=== PATIENT | female | born 1955 | race Caucasian/White ===

== ENCOUNTER 2018-06-09 13:57 | Observation (INO) | payer OTHER ==
[2018-06-09] MEDS ORDERED: MORPHINE SULFATE 4 MG/ML SYRINGE IV STA (15:59)
[2018-06-09] MEDS ORDERED: ONDANSETRON 4 MG/2 ML VIAL IVP STA (15:59)
[2018-06-09] MEDS ORDERED: SODIUM CHLORIDE 0.9% 1,000 ML IV STA (15:59)
[2018-06-09 16:36] LABS: Basophils % (A) 0 %; Eosinophils # (A) 0.2 k/uL (0-0.7); Eosinophils % (A) 2 %; HCT 41.4 % (34.0-46.0); HGB 13.9 gm/dL (11.4-16.0); Lymphocytes # (A) 2.2 k/uL (1.0-4.8); Lymphocytes % (A) 22 %; MCH 30.3 pg (25.0-35.0); MCHC 33.6 g/dL (31.0-37.0); MCV 90.2 fL (80.0-100.0); Mean Platelet Volume 6.8; Monocytes # (A) 0.4 k/uL (0-1.0); Monocytes % (A) 4 %; Neutrophils # (A) 6.9 k/uL (1.3-7.7); Neutrophils % (A) 71 %; Platelet Count 262 k/uL (150-450); RBC 4.59 m/uL (3.80-5.40); RDW 13.8 % (11.5-15.5); WBC 9.7 k/uL (3.8-10.6)
[2018-06-09 16:44] LABS: Albumin 4.4 g/dL (3.5-5.0); Calcium 9.8 mg/dL (8.4-10.2); Potassium 4.6 mmol/L (3.5-5.1); Total Bilirubin 0.4 mg/dL (0.2-1.3); Total Protein 7.8 g/dL (6.3-8.2)
--- NOTE | 2018-06-09 16:44 | XR ---
EXAMINATION TYPE: XR abdomen 2V DATE OF EXAM: 06/09/2018 COMPARISON: NONE HISTORY: Left side pain TECHNIQUE: 3 views FINDINGS: There is no sign of intestinal obstruction or pneumoperitoneum. Fecal pattern is normal. Th ere are no pathologic calcifications over the kidneys. There is 5 mm calcification in the right cira stacy region at the L1-2 level that could be urinary tract calculus. There is mild lumbar dextroscoli osis. There is no evidence of a mass. IMPRESSION: Nonacute abdomen. Possible urinary tract calculus o n the right side.
[2018-06-09 16:46] LABS: INR 0.9 (<1.2); Prothrombin Time 9.6 sec (9.0-12.0)
[2018-06-09 16:59] LABS: Creatine Kinase 80 U/L (30-135)
[2018-06-09 17:11] LABS: Creatine Kinase MB 0.9 ng/mL (0.0-2.4); Troponin I <0.012 ng/mL (0.000-0.034)
[2018-06-09 17:35] LABS: Appearance,Urine Clear (Clear); Bilirubin,Urine Negative (Negative); Blood,Urine Negative (Negative); Color,Urine Yellow; Glucose,Urine (UA) Negative (Negative); Ketones,Urine Negative (Negative); Leukocyte Esterase,Urine Negative (Negative); Nitrite,Urine Negative (Negative); Protein,Urine Negative (Negative); Specific Gravity,Urine 1.011 (1.001-1.035); Urobilinogen,Urine <2.0 mg/dL (<2.0)
--- NOTE | 2018-06-09 17:54 | XR ---
EXAMINATION TYPE: XR chest 2V DATE OF EXAM: 06/09/2018 COMPARISON: NONE HISTORY: Left-sided chest pain TECHNIQUE: Frontal and lateral views of the chest are obtained. FINDINGS: There is no heart failure. There is minimal linear density at the right lung base. There i s suboptimal inspiration. There are no hilar masses. There is no evidence of pleural effusion. Bony t horax appears intact. IMPRESSION: Subsegmental atelectasis at the right lung base. Otherwise negative exam. Normal heart. No rib fracture seen.
[2018-06-09] MEDS ORDERED: HYDROmorphone 1 MG/ML 1 ML SYRINGE IVP STA (18:06)
[2018-06-09] MEDS ORDERED: FAMOTIDINE 20 MG/2 ML VIAL IV ONE (18:28)
[2018-06-09] MEDS ORDERED: methylPREDNISolone SOD SUCCI 125 MG/2 ML VIAL IV ONE (18:28)
[2018-06-09] MEDS ORDERED: diphenhydrAMINE 50 MG/ML 1 ML VIAL IVP ONE (18:28)
--- NOTE | 2018-06-09 18:50 | ED ---
Abdominal Pain HPI - General Chief Complaint: Abdominal Pain Stated Complaint: Left side pain, rib pain Time Seen by Provider: 06/09/18 15:11 Source: patient Mode of arrival: ambulatory Limitations: no limitations - History of Present Illness Initial Comments: 62-year-old female patient presents to emergency department today for evaluation of left upper quadrant and left side pain. Patient states symptoms started a couple days ago and had been progressively worsening. Patient states that she did have a similar episode of pain approximately a month ago but it resolved on its own. Patient states she is nauseated with this but has not vomited. She describes the pain as a sharp stabbing pain. States it worsens whenever states deep breath or moves in a certain way. Patient states she is very tender over the left upper back and left side. She denies any fevers or chills. Denies any shortness of breath. Patient does report a history of blood disorder which causes blood clots, she does take Eliquis. Patient denies any recent rash, chest pain, diarrhea, constipation, back pain, numbness, tingling, dizziness, weakness, hematuria, dysuria, urinary urgency, urinary frequency, headache, visual changes, or any other complaints. - Related Data Home Medications Medication Instructions Recorded Confirmed Albuterol Inhaler [Ventolin Hfa 1 - 2 puff INHALATION RT-Q6H PRN 06/09/18 Inhaler] Enoxaparin [Lovenox] 150 mg SQ HS 06/09/18 06/09/18 Furosemide [Lasix] 20 mg PO DAILY 06/09/18 06/09/18 Mirtazapine [Remeron] 30 mg PO HS 06/09/18 06/09/18 Pantoprazole Sodium [Protonix] 40 mg PO DAILY 06/09/18 06/09/18 Sertraline [Zoloft] 100 mg PO DAILY 06/09/18 06/09/18 tiZANidine [Zanaflex] 2 mg PO Q8H PRN 06/09/18 06/09/18 Allergies Allergy/AdvReac Type Severity Reaction Status Date / Time Iodinated Contrast- Oral and AdvReac Vomiting/PASSES Verified 06/09/18 15:44 IV Dye OUT [Iodinated Contrast Media - IV Dye] Review of Systems ROS Statement: Those systems with pertinent positive or pertinent negative responses have been documented in the HPI. ROS Other: All systems not noted in ROS Statement are negative. Past Medical History Past Medical History: Deep Vein Thrombosis (DVT) Additional Past Medical History / Comment(s): protein deficiency, headache History of Any Multi-Drug Resistant Organisms: None Reported Past Surgical History: Section, Hysterectomy Additional Past Surgical History / Comment(s): neck c4 fusion Past Psychological History: Anxiety Smoking Status: Never smoker Past Alcohol Use History: None Reported Past Drug Use History: None Reported General Exam Limitations: no limitations General appearance: alert, in no apparent distress, other (Physical well- developed, well-nourished adult female patient in no acute distress. Vital signs upon presentation are temperature 98.0F, pulse 75, respirations 18, blood pressure 136/82, pulse ox 96% on room air.) Eye exam: Present: normal appearance, PERRL, EOMI. Absent: scleral icterus, conjunctival injection, periorbital swelling ENT exam: Present: normal exam, normal oropharynx, mucous membranes moist Respiratory exam: Present: normal lung sounds bilaterally, chest wall tenderness (Left rib and left upper back tenderness). Absent: respiratory distress, wheezes, rales, rhonchi, stridor Cardiovascular Exam: Present: regular rate, normal rhythm, normal heart sounds. Absent: systolic murmur, diastolic murmur, rubs, gallop, clicks GI/Abdominal exam: Present: soft, tenderness (Mild left upper quadrant tenderness), normal bowel sounds. Absent: distended, guarding, rebound, rigid Neurological exam: Present: alert, oriented X3, CN II-XII intact Psychiatric exam: Present: normal affect, normal mood Skin exam: Present: warm, dry, intact, normal color. Absent: rash Course Vital Signs 06/09/18 06/09/18 06/09/18 14:05 14:59 18:15 Temperature 98 F 98.0 F Pulse Rate 75 70 78 Respiratory 18 18 18 Rate Blood Pressure 136/82 138/80 151/98 O2 Sat by Pulse 96 95 94 L Oximetry 06/09/18 19:50 Temperature Pulse Rate 90 Respiratory 16 Rate Blood Pressure 158/95 O2 Sat by Pulse 94 L Oximetry Medical Decision Making - Medical Decision Making 62-year-old female patient presents to the emergency department today for evaluation of left-sided chest pain that radiates and through to the back. Patient states that this started 2 days ago and has been worsening. Reports it as a pressure type pain is expanding her chest. Physical examination did reveal some very mild left upper quadrant tenderness. Left-sided rib tenderness. Patient's oxygen saturation has been between 9495% while here in the department. Chest CTA and abdominal CAT scan were performed and showed no acute abnormalities however there is a very small left pleural effusion. Labs reviewed and are unremarkable. Patient was given multiple doses of pain medication here in the department. Upon reevaluation states her pain is so an 8 out of 10 on the pain scale. Given location of patient's pain and age and risk factors she'll admit to the hospital for serial troponins and cardiology consultation. Patient is agreeable with the plan. - Lab Data Result diagrams: 06/09/18 16:14 06/09/18 16:14 Lab Results 06/09/18 06/09/18 06/09/18 Range/Units 16:14 16:14 16:14 WBC 9.7 (3.8-10.6) k/uL RBC 4.59 (3.80-5.40) m/uL Hgb 13.9 (11.4-16.0) gm/dL Hct 41.4 (34.0-46.0) % MCV 90.2 (80.0-100.0) fL MCH 30.3 (25.0-35.0) pg MCHC 33.6 (31.0-37.0) g/dL RDW 13.8 (11.5-15.5) % Plt Count 262 (150-450) k/uL Neutrophils % 71 % Lymphocytes % 22 % Monocytes % 4 % Eosinophils % 2 % Basophils % 0 % Neutrophils # 6.9 (1.3-7.7) k/uL Lymphocytes # 2.2 (1.0-4.8) k/uL Monocytes # 0.4 (0-1.0) k/uL Eosinophils # 0.2 (0-0.7) k/uL Basophils # 0.0 (0-0.2) k/uL PT (9.0-12.0) sec INR (<1.2) APTT (22.0-30.0) sec Sodium 142 (137-145) mmol/L Potassium 4.6 (3.5-5.1) mmol/L Chloride 110 H (98-107) mmol/L Carbon Dioxide 23 (22-30) mmol/L Anion Gap 9 mmol/L BUN 14 (7-17) mg/dL Creatinine 0.87 (0.52-1.04) mg/dL Est GFR (CKD-EPI)AfAm 83 (>60 ml/min/1.73 sqM) Est GFR (CKD-EPI)NonAf 72 (>60 ml/min/1.73 sqM) Glucose 92 (74-99) mg/dL Plasma Lactic Acid Derick (0.7-2.0) mmol/L Calcium 9.8 (8.4-10.2) mg/dL Total Bilirubin 0.4 (0.2-1.3) mg/dL AST 35 (14-36) U/L ALT 60 H (9-52) U/L Alkaline Phosphatase 117 (38-126) U/L Total Creatine Kinase 80 (30-135) U/L CK-MB (CK-2) 0.9 (0.0-2.4) ng/mL CK-MB (CK-2) Rel Index 1.1 Troponin I <0.012 (0.000-0.034) ng/mL Total Protein 7.8 (6.3-8.2) g/dL Albumin 4.4 (3.5-5.0) g/dL Amylase 52 (30-110) U/L Lipase 144 (23-300) U/L Urine Color Urine Appearance (Clear) Urine pH (5.0-8.0) Ur Specific Skillman (1.001-1.035) Urine Protein (Negative) Urine Glucose (UA) (Negative) Urine Ketones (Negative) Urine Blood (Negative) Urine Nitrite (Negative) Urine Bilirubin (Negative) Urine Urobilinogen (<2.0) mg/dL Ur Leukocyte Esterase (Negative) 06/09/18 06/09/18 06/09/18 Range/Units 16:14 16:14 16:57 WBC (3.8-10.6) k/uL RBC (3.80-5.40) m/uL Hgb (11.4-16.0) gm/dL Hct (34.0-46.0) % MCV (80.0-100.0) fL MCH (25.0-35.0) pg MCHC (31.0-37.0) g/dL RDW (11.5-15.5) % Plt Count (150-450) k/uL Neutrophils % % Lymphocytes % % Monocytes % % Eosinophils % % Basophils % % Neutrophils # (1.3-7.7) k/uL Lymphocytes # (1.0-4.8) k/uL Monocytes # (0-1.0) k/uL Eosinophils # (0-0.7) k/uL Basophils # (0-0.2) k/uL PT 9.6 (9.0-12.0) sec INR 0.9 (<1.2) APTT 23.0 (22.0-30.0) sec Sodium (137-145) mmol/L Potassium (3.5-5.1) mmol/L Chloride (98-107) mmol/L Carbon Dioxide (22-30) mmol/L Anion Gap mmol/L BUN (7-17) mg/dL Creatinine (0.52-1.04) mg/dL Est GFR (CKD-EPI)AfAm (>60 ml/min/1.73 sqM) Est GFR (CKD-EPI)NonAf (>60 ml/min/1.73 sqM) Glucose (74-99) mg/dL Plasma Lactic Acid Derick 0.8 (0.7-2.0) mmol/L Calcium (8.4-10.2) mg/dL Total Bilirubin (0.2-1.3) mg/dL AST (14-36) U/L ALT (9-52) U/L Alkaline Phosphatase (38-126) U/L Total Creatine Kinase (30-135) U/L CK-MB (CK-2) (0.0-2.4) ng/mL CK-MB (CK-2) Rel Index Troponin I (0.000-0.034) ng/mL Total Protein (6.3-8.2) g/dL Albumin (3.5-5.0) g/dL Amylase (30-110) U/L Lipase (23-300) U/L Urine Color Yellow Urine Appearance Clear (Clear) Urine pH 6.0 (5.0-8.0) Ur Specific Sk[place]man 1.011 (1.001-1.035) Urine Protein Negative (Negative) Urine Glucose (UA) Negative (Negative) Urine Ketones Negative (Negative) Urine Blood Negative (Negative) Urine Nitrite Negative (Negative) Urine Bilirubin Negative (Negative) Urine Urobilinogen <2.0 (<2.0) mg/dL Ur Leukocyte Esterase Negative (Negative) - EKG Data -: EKG Interpreted by Me EKG Comments: EKG obtained at 2119 shows normal sinus rhythm with a ventricular rate of 87, MS interval 150, QRS duration 70, QT 362, QTc 435. No evidence of ST elevation or depression. - Radiology Data Radiology results: report reviewed, image reviewed CT abdomen and pelvis with contrast was obtained. Report was reviewed in its entirety. Impression by Dr. Yi shows fatty infiltration of the liver. Small left pleural effusion. Normal appendix. No acute abdomen mildly seen within the abdomen and pelvis. CT chest for pulmonary embolus was performed with IV contrast. Report was reviewed in its entirety. Impression by Dr. Yi shows interstitial pulmonary infiltrates could relate to pulmonary fibrosis. Mild cardiomegaly. Small left pleural effusion. Fatty infiltration of the liver. No evidence of pulmonary embolus. Two-view x-ray of the abdomen is obtained. Report was reviewed in its entirety. Impression by Dr. Yi shows nonacute abdomen. Possible urinary tract calculus on the right side Two-view x-ray of the chest is obtained. Report was reviewed in its entirety. Impression by Dr. Yi shows subsegmental atelectasis at the right lung base. Otherwise negative exam. Normal heart. No rib fracture seen. Disposition Clinical Impression: Chest pain, Pleural effusion, left Disposition: ADMITTED IP TO THIS [facility] Condition: Serious Referrals: Nonstaff,Physician [Primary Care Provider] - 1-2 days Decision to Admit Reason: Admit from EC Decision Date: 06/09/18 Decision Time: 21:00
--- NOTE | 2018-06-09 19:40 | CT ---
EXAMINATION TYPE: CT chest angio for PE DATE OF EXAM: 06/09/2018 COMPARISON: None HISTORY: Left upper quadrant and flank pain on and off x [address] DLP: 457.4 mGycm Automated exposure control for dose reduction was used. CONTRAST: CT Chest for pulmonary embolism performed with with IV Contrast, patient injected with 100 mL of Isov ue 370. FINDINGS: There is coarse groundglass interstitial infiltrate in the lungs. There is no evidence of a pulmonary mass. There is small left pleural effusion. There is fatty infiltration of the liver. Thoracic aorta is intact without evidence of aneurysm or dissection. There is no mediastinal adenopathy. There are no hilar masses. I see no filling defects in the pulmon sharron arteries. The bony thorax is intact. There is no compression fracture. IMPRESSION: Interstitial pulmonary infiltrates could relate to pulmonary fibrosis. Mild cardiomegaly. Small left pleural effusion. Fatty infiltration of the liver. no evidence of pulmonary embolism.
--- NOTE | 2018-06-09 19:49 | CT ---
EXAMINATION TYPE: CT abdomen pelvis w con DATE OF EXAM: 06/09/2018 COMPARISON: 07/25/2010 HISTORY: Left upper quadrant and flank pain on and off x [address] DLP: 1339.2 mGycm Automated exposure control for dose reduction was used. TECHNIQUE: Helical acquisition of images was performed from the lung bases through the pelvis. CONTRAST: Performed without Oral Contrast and with IV Contrast, patient injected with mL of Isovue 370. FINDINGS: There is some fatty infiltration of the liver. There is small left pleural effusion. There is some in terstitial infiltrate at the lung bases. Spleen appears normal. There is no pancreatic mass. Gallblad tom has normal size. There is no adrenal mass. Kidneys show satisfactory contrast opacification. There is no hydronephrosi s. There is 2 cm cyst posterior right kidney. There is no retroperitoneal adenopathy. Ureters are not dilated. Bladder distends smoothly. There is no free fluid in the pelvis. The appendix appears normal. There i s no mesenteric edema or adenopathy. There is no inguinal hernia. There is no free fluid in the pelvis. I see no evidence of a bowel obstr uction. There is no evidence of free air. The lumbar spine is intact. There is narrowing at L5-S1 dis c space with vacuum disc and spur formation. IMPRESSION: FATTY INFILTRATION OF THE LIVER. SMALL LEFT PLEURAL EFFUSION. NORMAL APPENDIX. NO ACUTE ABNORMALITY SEEN WITHIN THE ABDOMEN AND PELVIS.
[2018-06-09] MEDS ORDERED: NALOXONE 0.4 MG/ML 1 ML VIAL IV PRN (20:50)
[2018-06-09] MEDS ORDERED: ONDANSETRON 4 MG/2 ML VIAL IVP PRN (20:50)
[2018-06-09] MEDS ORDERED: ALBUTEROL NEBULIZED 2.5 MG/3 ML INHALATION PRN (20:52)
[2018-06-09] MEDS ORDERED: MIRTAZAPINE 15 MG TAB PO SCH (21:00)
[2018-06-09] MEDS ORDERED: ENOXAPARIN 150 MG/ML SYRINGE SQ SCH (22:00)
[2018-06-09 22:24] LABS: Creatine Kinase 74 U/L (30-135)
[2018-06-09 22:36] VITALS: BMI 36.4
[2018-06-09 22:37] LABS: Creatine Kinase MB 0.6 ng/mL (0.0-2.4); Troponin I <0.012 ng/mL (0.000-0.034)
[2018-06-09] MEDS: MORPHINE SULFATE 4 MG/ML SYRINGE IV PRN (22:42)
[2018-06-10] MEDS: MORPHINE SULFATE 4 MG/ML SYRINGE IV PRN ×3 (03:34→15:55)
[2018-06-10 04:34] LABS: Creatine Kinase 74 U/L (30-135)
[2018-06-10 04:46] LABS: Creatine Kinase MB 0.7 ng/mL (0.0-2.4); Troponin I <0.012 ng/mL (0.000-0.034)
[2018-06-10 05:54] LABS: Basophils % (A) 0 %; Eosinophils % (A) 0 %; HCT 41.7 % (34.0-46.0); HGB 13.5 gm/dL (11.4-16.0); Lymphocytes % (A) 11 %; MCH 30.3 pg (25.0-35.0); MCHC 32.3 g/dL (31.0-37.0); MCV 93.6 fL (80.0-100.0); Mean Platelet Volume 7.3; Monocytes # (A) 0.1 k/uL (0-1.0); Monocytes % (A) 1 %; Neutrophils # (A) 8.3 k/uL (1.3-7.7); Neutrophils % (A) 88 %; Platelet Count 278 k/uL (150-450); RBC 4.45 m/uL (3.80-5.40); WBC 9.4 k/uL (3.8-10.6)
[2018-06-10 06:02] LABS: Albumin 4.2 g/dL (3.5-5.0); Calcium 9.5 mg/dL (8.4-10.2); Total Bilirubin 0.3 mg/dL (0.2-1.3); Total Protein 7.5 g/dL (6.3-8.2)
[2018-06-10 08:17] VITALS: RESP 16
[2018-06-10] MEDS ORDERED: PANTOPRAZOLE 40 MG TABLET PO SCH (09:00)
[2018-06-10] MEDS ORDERED: FUROSEMIDE 20 MG TAB PO SCH (09:00)
[2018-06-10] MEDS ORDERED: SERTRALINE 100 MG TAB PO SCH (09:00)
--- NOTE | 2018-06-10 11:39 | P.CRDCN ---
History of Present Illness History of present illness: This is Dr. Lopez dictating a consult on this patient The patient was interviewed and examined by me IMPRESSION / ASSESSMENT: Atypical chest discomfort with tenderness in the lower costochondral junctions and ribs no evidence for pulmonary embolism although she has protein C and protein S deficiency and has had pulmonary emboli in the past and is on Lovenox lifelong. She has had breakthrough episodes of clotting on Coumadin History of pulmonary emboli PLAN: Anti-inflammatory treatment for pain Outpatient cardiac workup, will follow Dr. Mejía HPI 62-year-old female presenting with left upper quadrant pain for several days progressive worsening Nausea no vomiting Pain was stabbing in nature and worse when she took a deep breath or moved a certain way She has a history of a blood clotting disorder but does not take ELIQUIS per the chart ROS: No fever chills or rigors, no cough, phlegm or expectoration, no nausea, vomiting or diarrhea, no hematuria, dysuria, no musculoskeletal complaints, no strokes or seizures, no skin lesions. EXAMINATION Very tender lower costochondral junctions of the left side and rib Breath sounds are clear no rhonchi no crackles Heart sounds are normal normal S1 normal S2 Abdomen soft No JVD Vitals are stable REVIEW OF LABS, ECG 12-lead ECG is normal no ST segment abnormalities Chest x-ray shows interstitial pulmonary markings, increased small left pleural effusion 3 serial cardiac enzymes are normal Past Medical History Past Medical History: Deep Vein Thrombosis (DVT) Additional Past Medical History / Comment(s): protein essency deficiency clotting disorder, headache, multiple DVT's History of Any Multi-Drug Resistant Organisms: None Reported Past Surgical History: Section, Hysterectomy Additional Past Surgical History / Comment(s): neck c4 fusion Past Anesthesia/Blood Transfusion Reactions: No Reported Reaction Past Psychological History: Anxiety Smoking Status: Never smoker Past Alcohol Use History: None Reported Past Drug Use History: None Reported - Past Family History Mother Additional Family Medical History / Comment(s): clotting disorder Medications and Allergies Home Medications Medication Instructions Recorded Confirmed Type Albuterol Inhaler [Ventolin Hfa 1 - 2 puff INHALATION RT-Q6H PRN 06/09/18 History Inhaler] Enoxaparin [Lovenox] 150 mg SQ HS 06/09/18 06/09/18 History Furosemide [Lasix] 20 mg PO DAILY 06/09/18 06/09/18 History Mirtazapine [Remeron] 30 mg PO HS 06/09/18 06/09/18 History Pantoprazole Sodium [Protonix] 40 mg PO DAILY 06/09/18 06/09/18 History Sertraline [Zoloft] 100 mg PO DAILY 06/09/18 06/09/18 History tiZANidine [Zanaflex] 2 mg PO Q8H PRN 06/09/18 06/09/18 History Allergies Allergy/AdvReac Type Severity Reaction Status Date / Time Iodinated Contrast- Oral and AdvReac Vomiting/PASSES Verified 06/09/18 15:44 IV Dye OUT [Iodinated Contrast Media - IV Dye] Physical Exam Vitals: Vital Signs Temp Pulse Pulse Resp BP BP Pulse Ox 06/10/18 03:57 18 06/10/18 03:49 98.1 F 78 18 112/67 93 L 06/10/18 00:00 18 06/09/18 22:26 98.2 F 84 18 174/73 92 L 06/09/18 21:57 98.0 F 82 16 142/97 91 L 06/09/18 21:00 75 17 142/107 90 L 06/09/18 20:00 77 16 158/95 92 L 06/09/18 19:50 90 16 158/95 94 L 06/09/18 19:00 151/98 06/09/18 18:15 98.0 F 78 18 151/98 94 L 06/09/18 18:00 138/80 92 L 06/09/18 17:30 138/80 94 L 06/09/18 17:00 138/80 92 L 06/09/18 16:30 138/80 06/09/18 16:00 138/80 91 L 06/09/18 15:30 138/80 95 06/09/18 15:00 138/80 92 L 06/09/18 14:59 70 18 138/80 95 06/09/18 14:58 92 L 06/09/18 14:05 98 F 75 18 136/82 96 Intake and Output 06/09/18 06/10/18 06/10/18 22:59 06:59 14:59 Other: Voiding Method Toilet # Voids 2 Weight 102.512 kg Results 06/10/18 03:24 06/10/18 03:24 Cardiac Enzymes 06/09/18 06/09/18 06/09/18 Range/Units 16:14 16:14 21:55 AST 35 (14-36) U/L CK-MB (CK-2) 0.9 0.6 (0.0-2.4) ng/mL Troponin I <0.012 <0.012 (0.000-0.034) ng/mL 06/10/18 06/10/18 Range/Units 03:24 03:24 AST 33 (14-36) U/L CK-MB (CK-2) 0.7 (0.0-2.4) ng/mL Troponin I <0.012 (0.000-0.034) ng/mL Coagulation 06/09/18 Range/Units 16:14 PT 9.6 (9.0-12.0) sec APTT 23.0 (22.0-30.0) sec CBC 06/09/18 06/10/18 Range/Units 16:14 03:24 WBC 9.7 9.4 (3.8-10.6) k/uL RBC 4.59 4.45 (3.80-5.40) m/uL Hgb 13.9 13.5 (11.4-16.0) gm/dL Hct 41.4 41.7 (34.0-46.0) % Plt Count 262 278 (150-450) k/uL Comprehensive Metabolic Panel 06/09/18 06/10/18 Range/Units 16:14 03:24 Sodium 142 142 (137-145) mmol/L Potassium 4.6 5.0 (3.5-5.1) mmol/L Chloride 110 H 109 H (98-107) mmol/L Carbon Dioxide 23 23 (22-30) mmol/L BUN 14 15 (7-17) mg/dL Creatinine 0.87 1.00 (0.52-1.04) mg/dL Glucose 92 178 H (74-99) mg/dL Calcium 9.8 9.5 (8.4-10.2) mg/dL AST 35 33 (14-36) U/L ALT 60 H 57 H (9-52) U/L Alkaline Phosphatase 117 111 (38-126) U/L Total Protein 7.8 7.5 (6.3-8.2) g/dL Albumin 4.4 4.2 (3.5-5.0) g/dL Current Medications Generic Name Dose Route Start Last Admin Trade Name Freq PRN Reason Stop Dose Admin Albuterol Sulfate 2.5 mg 06/09/18 20:52 Ventolin Nebulized INHALATION RT-Q6H PRN Shortness Of Breath Enoxaparin Sodium 150 mg 06/09/18 22:00 06/09/18 22:44 Lovenox SQ 150 mg HS CANDELARIO Administration Furosemide 20 mg 06/10/18 09:00 Lasix PO DAILY [facility] Mirtazapine 30 mg 06/09/18 21:00 06/09/18 22:44 Remeron PO 30 mg HS CANDELARIO Administration Morphine Sulfate 4 mg 06/09/18 20:50 06/10/18 03:34 Morphine Sulfate (Inj) IV 4 mg Q4HR PRN Administration Severe Pain Naloxone HCl 0.2 mg 06/09/18 20:50 Narcan IV Q2M PRN Opioid Reversal Ondansetron HCl 4 mg 06/09/18 20:50 Zofran IVP Q8HR PRN Nausea And Vomiting Pantoprazole Sodium 40 mg 06/10/18 09:00 Protonix PO DAILY [facility] Sertraline HCl 100 mg 06/10/18 09:00 Zoloft PO DAILY [facility] Tizanidine HCl 2 mg 06/09/18 20:52 Zanaflex PO Q8H PRN Muscle Pain Intake and Output 06/09/18 06/10/18 06/10/18 22:59 06:59 14:59 Other: Voiding Method Toilet # Voids 2 Weight 102.512 kg 06/10/18 03:24 06/10/18 03:24
[2018-06-10 11:45] VITALS: BP 114/71; PULSE 70; TEMP 98.3
[2018-06-10] MEDS ORDERED: methylPREDNISolone ACETATE 80 MG/ML 1 ML VIAL IM STA (12:49)
--- NOTE | 2018-06-10 13:04 | CONS ---
CONSULTATION DATE OF SERVICE: 06/10/2018. REASON FOR CONSULTATION: Sharp pleuritic-type chest pain in the left chest. HISTORY OF PRESENT ILLNESS: This is a 62-year-old female with a history of protein C and S deficiency, who is on lifelong anticoagulation with Lovenox. The patient come to the emergency room with complaints of a couple days worth of a very sharp pain in the left chest area. The patient apparently had this earlier in the month, but it sort of went away on its own. The pain is definitely sharp in nature. It is worse with deep breathing and body position changes. The patient was evaluated by Cardiology and thought not to have cardiac disease. Her EKG was normal and troponins were negative. She denies any trauma. The pain sounds to me like pleurisy and likely what she has is a viral infection of the pleuritic surfaces possibly caused by Coxsackie B infection. Anyway, it appears to be a pleurisy more than anything else. She is on Lovenox chronically for protein C and S deficiency. A chest x-ray was unremarkable. A CT scan showed a very tiny left pleural effusion. Again, this is consistent with a viral pleuritis. HOME MEDICATIONS: Include albuterol inhaler, Lovenox, Lasix, Remeron, Protonix and Zoloft, and Zanaflex. ALLERGIES: ARE IVP DYE. PAST MEDICAL HISTORY: Includes protein C and S deficiency, deep venous thrombosis, headache. She had surgically had a neck C4 fusion, , hysterectomy. SOCIAL HISTORY: Negative tobacco, alcohol, or illicit drug use. The rest of the history is not too remarkable. REVIEW OF SYSTEMS: CONSTITUTIONAL: Negative. NEUROLOGIC: Negative. HEENT negative. CARDIOVASCULAR: Negative. PULMONARY: She has sharp left-sided chest discomfort. It is pleuritic in nature. It is worse with deep breathing and body position changes. GI/ negative. RHEUMATOLOGIC/IMMUNOLOGIC negative. ENDOCRINOLOGIC and DERMATOLOGIC all negative. PHYSICAL EXAMINATION: Current vital signs are reviewed. They appear to be normal. Temperature 98.3, heart rate 70, respiratory 16, blood pressure 114/71, room air saturation 93%. Appears in no acute distress. HEENT examination is grossly unremarkable. Mucous membranes are moist. No oral lesions. NECK: Supple. Full range of motion. No adenopathy or thyromegaly. Neck veins are flat. Cardiovascular examination reveals regular rhythm and rate. S1, S2 normal. No S3, S4, murmur. Heart rate about mid 70s. LUNGS: Clear. Breath sounds equal. No wheezes, rhonchi, or crackles. I listened for a pleural friction rub but could not hear one. ABDOMEN: Soft, but obese. Bowel sounds heard. Extremities are intact. No cyanosis, clubbing, or edema. Skin without rash. Neurologic examination is nonfocal. LABS: Reviewed. CBC is completely normal. Likewise, a comprehensive metabolic profile is mostly normal. The ALT is modestly elevated at 57. The chloride is a bit elevated at 109. Glucose is 178. Urine is negative. Chest x-ray is unremarkable. Abdominal x-ray is unremarkable. CT scan of the chest shows no evidence of pulmonary embolism. There is very tiny left pleural effusion. Not much else seen on the CT scan of the chest. The patient also had a CT of the abdomen. There is no acute abnormality other than fatty infiltration of the liver. Medications are reviewed. ASSESSMENT: 1. Viral pleurisy, likely caused by Coxsackie B infection ([employer] pathologist). 2. History of protein C and S deficiency with previous deep vein thrombosis, currently on lifelong anticoagulation. 3. History of headaches. 4. Obesity PLAN: The patient is going to get Depo-Medrol 80 mg IM. We will send her home on a modified prednisone burst and taper, i.e. 30 mg a day with food for 4 days, 20 mg a day for 4 days, 10 mg a day for 4 days and stop. I am happy to see in the office should she not improve. Additional recommendations and suggestions are forthcoming. We also recommend a nonsteroid anti-inflammatory drug such as Motrin or ibuprofen, Aleve, Advil, in conjunction with the prednisone. MMODL / IJN: [id number] / MTDD
--- NOTE | 2018-06-10 16:55 | P.HPIM ---
History of Present Illness This is a pleasant 62 years old female with past medical history of DVT, protein S and C deficiency on lifelong anticoagulation with Lovenox, who presents because of chest pain, patient describes the pain as sharp getting worse with movement, coughing and deep breathing. Of 2 days' duration. Patient had similar pain about 2 weeks ago WHICH was milder and then went away before it comes back about 2 days ago which is bothering her. Patient denies dyspnea and she is breathing quietly Patient has been evaluated by buckler and lacer who recommended anti-inflammatory treatment for the patient and outpatient cardiac workup. Also patient has been evaluated by lawn mower operator thinks it's pleurisy from viral illness, mostly coxsackie B virus and recommended short course of steroids as well as nonsteroidal anti-inflammatory medication.. However patient does not want to take NSAIDs because states that's increased risk of bleeding on the top of her Lovenox. She agrees to take Tylenol which has is at home and Ultram. Patient was cleared for discharge by both cardiology and pulmonary service Balance and management plan was discussed with the patient and she verbalized understanding and acceptance Patient is found stable and can be discharged home however she needs follow-up as an outpatient. Patient was instructed to follow up with pulmonary cardiology and her PCP within one week. Patient verbalized understanding and acceptance and she is going to call and make appointments. No appointments could be made for her by medical staff today as it is weakened physical exam Gen.: Patient alert awake and oriented X 3, NOT IN DISTRESS CVS: s1-s2, RRR, no murmur -CHEST:bilateral CTA, no wheezing or crepitation. Left chest wall tenderness below her left breast Abdomen: Soft, no tenderness, no distention, positive bowel sounds Extremities: No leg edema or induration Time spent more than 35 minutes Review of Systems CONSTITUTIONAL: No fever, no malaise, no fatigue. HEENT: No recent visual problems or hearing problems. Denied any sore throat. CARDIOVASCULAR: No orthopnea, PND, no palpitations, no syncope. PULMONARY: No shortness of breath, no cough, no hemoptysis. GASTROINTESTINAL: No diarrhea, no nausea, no vomiting, no abdominal pain. Normoactive bowel sounds. NEUROLOGICAL: No headaches, no weakness, no numbness. HEMATOLOGICAL: Denies any bleeding or petechiae. GENITOURINARY: Denies any burning micturition, frequency, or urgency. MUSCULOSKELETAL/RHEUMATOLOGICAL: Denies any joint pain, swelling, or any muscle pain. ENDOCRINE: Denies any polyuria or polydipsia. Past Medical History Past Medical History: Deep Vein Thrombosis (DVT) Additional Past Medical History / Comment(s): protein essency deficiency clotting disorder, headache, multiple DVT's History of Any Multi-Drug Resistant Organisms: None Reported Past Surgical History: Section, Hysterectomy Additional Past Surgical History / Comment(s): neck c4 fusion Past Anesthesia/Blood Transfusion Reactions: No Reported Reaction Past Psychological History: Anxiety Smoking Status: Never smoker Past Alcohol Use History: None Reported Past Drug Use History: None Reported - Past Family History Mother Additional Family Medical History / Comment(s): clotting disorder Medications and Allergies Home Medications Medication Instructions Recorded Confirmed Type Albuterol Inhaler [Ventolin Hfa 1 - 2 puff INHALATION RT-Q6H PRN 06/09/18 History Inhaler] Enoxaparin [Lovenox] 150 mg SQ HS 06/09/18 06/09/18 History Furosemide [Lasix] 20 mg PO DAILY 06/09/18 06/09/18 History Mirtazapine [Remeron] 30 mg PO HS 06/09/18 06/09/18 History Pantoprazole Sodium [Protonix] 40 mg PO DAILY 06/09/18 06/09/18 History Sertraline [Zoloft] 100 mg PO DAILY 06/09/18 06/09/18 History tiZANidine [Zanaflex] 2 mg PO Q8H PRN 06/09/18 06/09/18 History Allergies Allergy/AdvReac Type Severity Reaction Status Date / Time Iodinated Contrast- Oral and AdvReac Vomiting/PASSES Verified 06/09/18 15:44 IV Dye OUT [Iodinated Contrast Media - IV Dye] Physical Exam Vitals: Vital Signs Temp Pulse Pulse Resp BP BP Pulse Ox 06/10/18 11:44 98.3 F 70 16 114/71 93 L 06/10/18 08:16 98.1 F 73 16 129/80 94 L 06/10/18 03:57 18 06/10/18 03:49 98.1 F 78 18 112/67 93 L 06/10/18 00:00 18 06/09/18 22:26 98.2 F 84 18 174/73 92 L 06/09/18 21:57 98.0 F 82 16 142/97 91 L 06/09/18 21:00 75 17 142/107 90 L 06/09/18 20:00 77 16 158/95 92 L 06/09/18 19:50 90 16 158/95 94 L 06/09/18 19:00 151/98 06/09/18 18:15 98.0 F 78 18 151/98 94 L 06/09/18 18:00 138/80 92 L 06/09/18 17:30 138/80 94 L 06/09/18 17:00 138/80 92 L Intake and Output 06/10/18 06/10/18 06/10/18 06:59 14:59 22:59 Other: Voiding Method Toilet Toilet Toilet # Voids 2 2 GENERAL: The patient is alert and oriented x3, not in any acute distress. Well developed, well nourished. HEENT: Pupils are round and equally reacting to light. EOMI. No scleral icterus. No conjunctival pallor. Normocephalic, atraumatic. No pharyngeal erythema. No thyromegaly. CARDIOVASCULAR: S1 and S2 present. No murmurs, rubs, or gallops. PULMONARY: Chest is clear to auscultation, no wheezing or crackles. ABDOMEN: Soft, nontender, nondistended, normoactive bowel sounds. No palpable organomegaly. MUSCULOSKELETAL: No joint swelling or deformity. EXTREMITIES: No cyanosis, clubbing, or pedal edema. NEUROLOGICAL: Gross neurological examination did not reveal any focal deficits. SKIN: No rashes. Results CBC & Chem 7: 06/10/18 03:24 06/10/18 03:24 Labs: Abnormal Lab Results - Last 24 Hours (Table) 06/09/18 06/10/18 06/10/18 Range/Units 16:14 03:24 03:24 Neutrophils # 8.3 H (1.3-7.7) k/uL Chloride 110 H 109 H (98-107) mmol/L Glucose 178 H (74-99) mg/dL ALT 60 H 57 H (9-52) U/L Thrombosis Risk Factor Assmnt - Choose All That Apply Each Factor Represents 1 point: Obesity (BMI >25) Each Risk Factor Represents 2 Points: Age 61-74 years Each Risk Factor Represents 3 Points: History of DVT/PE Thrombosis Risk Factor Assessment Total Risk Factor Score: 6 Thrombosis Risk Factor Assessment Level: High Risk Assessment and Plan Plan: Labs and medication were reviewed.. Continue same treatment. Continue with symptomatic treatment. Resume home medication. Monitor lytes and vitals. DVT and GI prophylaxis. Further recommendations of the clinical course of the patient DVT prophylaxis: Subcutaneous heparin GI Prophylaxis: Pepcid PT/OT: Pending Prognosis is guarded
--- NOTE | 2018-06-10 17:30 | P.DS ---
Providers Date of admission: 06/09/18 21:03 Attending physician: Hanna Haney Consults: 06/09/18 20:50 Consult Physician Routine Consulting Provider: [facility] Consult Reason/Comments: Chest pain Do you want consulting provider notified?: Yes 06/10/18 11:46 Consult Physician Routine Consulting Provider: Tal Ellison Consult Reason/Comments: pleural effusion, pleuritic chest pain Do you want consulting provider notified?: Yes Primary care physician: Physician Nonstaff Hospital Course: Please refer to my H&P Patient Condition at Discharge: Serious Plan - Discharge Summary New Discharge Prescriptions: New traMADol HCl [Ultram] 50 mg PO QID 3 Days #12 tab predniSONE 10 mg PO DIRECTED #40 tab Continue Enoxaparin [Lovenox] 150 mg SQ HS Albuterol Inhaler [Ventolin Hfa Inhaler] 1 - 2 puff INHALATION RT-Q6H PRN PRN Reason: Shortness Of Breath tiZANidine [Zanaflex] 2 mg PO Q8H PRN PRN Reason: Muscle Pain Sertraline [Zoloft] 100 mg PO DAILY Pantoprazole Sodium [Protonix] 40 mg PO DAILY Mirtazapine [Remeron] 30 mg PO HS Furosemide [Lasix] 20 mg PO DAILY Discharge Medication List Albuterol Inhaler [Ventolin Hfa Inhaler] 1 - 2 puff INHALATION RT-Q6H PRN [History] Enoxaparin [Lovenox] 150 mg SQ HS 06/09/18 [History] Furosemide [Lasix] 20 mg PO DAILY 06/09/18 [History] Mirtazapine [Remeron] 30 mg PO HS 06/09/18 [History] Pantoprazole Sodium [Protonix] 40 mg PO DAILY 06/09/18 [History] Sertraline [Zoloft] 100 mg PO DAILY 06/09/18 [History] tiZANidine [Zanaflex] 2 mg PO Q8H PRN 06/09/18 [History] predniSONE 10 mg PO DIRECTED #40 tab 06/10/18 [Rx] traMADol HCl [Ultram] 50 mg PO QID 3 Days #12 tab 06/10/18 [Rx] Follow up Appointment(s)/Referral(s): Campbell Lopez MD [STAFF PHYSICIAN] - 1 Week (multimedia programmer ) Tal Ellison DO [Doctor of Osteopathic Medicine] - 1 Week (business management professor ) Nonstaff,Physician [Primary Care Provider] - 1-2 days Activity/Diet/Wound Care/Special Instructions: Cardiac diet Activities Limited till you see your doctor Discharge Disposition: HOME SELF-CARE
[2018-06-10] MEDS ORDERED: traMADol 50 MG TAB PO SCH (18:00)
== END 2018-06-10 18:12 | disposition home or self-care (01) ==
LOC: EC 13:57 → 1SOBS 21:03
PROVIDERS: ADMIT Internal Medicine; ATTEND Internal Medicine
DX: R09.1 Pleurisy (principal); D68.59 Other primary thrombophilia; E66.9 Obesity, unspecified; Z68.36 Body mass index [BMI] 36.0-36.9, adult; F41.9 Anxiety disorder, unspecified; Z86.718 Personal history of other venous thrombosis and embolism; Z90.710 Acquired absence of both cervix and uterus; Z86.711 Personal history of pulmonary embolism; Z91.041 Radiographic dye allergy status; Z79.01 Long term (current) use of anticoagulants; Z79.899 Other long term (current) drug therapy; Z83.2 Family history of diseases of the blood and blood-forming organs and certain disorders involving the immune mechanism
CPT/HCPCS: 96372 ×2; 96376 ×2; 96361; 96374; 96375; 99285; 36415; 93005; 80053 ×2; 82150; 82550 ×2; 82553 ×2; 83605; 83690; 84484 ×2; 85025 ×2; 85610; 85730; 81003; 71046; 74019; 71275; 74177; G0378 ×2; J2270 ×2; J1200; J1040; J2930; J2405; J1650; J1170; Q9967